=== PATIENT | male | born 2000 | race Caucasian/White ===

== ENCOUNTER 2021-05-29 00:58 | Emergency (ER) | payer MEDICAID ==
[~2021-05-29] VITALS: Ht 172.7 cm; Wt 104.3 kg
--- NOTE | 2021-05-29 03:37 | NUR ---
Dr. Callejas examining patient.
[2021-05-29] MEDS ORDERED: IBUP-2213 PO (03:44)
[2021-05-29] MEDS ORDERED: IBUPROFEN 600 MG TAB PO ONE (03:45)
== END 2021-05-29 04:17 | disposition home or self-care (01) ==
LOC: MED 00:58
DX: B34.9 Viral infection, unspecified (principal); Z20.822 Contact with and (suspected) exposure to COVID-19
CPT/HCPCS: 99281

== ENCOUNTER 2024-02-04 00:55 | Emergency (ER) | payer MEDICAID ==
[~2024-02-04] VITALS: Ht 177.8 cm; Wt 86.2 kg
[~2024-02-04 00:55] MED LIST: IBUP-2213 PO
[2024-02-04 01:02] VITALS: BP 126/72; PULSE 92; RESP 18; TEMP 98.3; O2SAT 100
[2024-02-04 01:22] VITALS: BP 126/72; PULSE 92; RESP 18; TEMP 98; O2SAT 100
== END 2024-02-04 01:23 ==
LOC: MED 00:55
DX: S50.812A Abrasion of left forearm, initial encounter (principal); Z02.89 Encounter for other administrative examinations; Z79.1 Long term (current) use of non-steroidal anti-inflammatories (NSAID); V43.52XA Car driver injured in collision with other type car in traffic accident, initial encounter; Y93.89 Activity, other specified; Y92.89 Other specified places as the place of occurrence of the external cause; Y99.8 Other external cause status
CPT/HCPCS: 99283